=== PATIENT | female | born 1970 | race Caucasian/White ===

== ENCOUNTER 2018-09-25 10:34 | Outpatient (CLI) | payer OTHER ==
--- NOTE | 2018-09-25 11:46 | RAD ---
LEFT KNEE TWO VIEWS: INDICATIONS: Left knee pain, unspecified chronicity. FINDINGS: No significant arthropathy, fracture, or joint capsular distention of the left knee. No dislocation is seen. IMPRESSION: No significant osseous abnormality of left knee. POS: [facility]
== END 2018-09-25 10:35 | disposition home or self-care (01) ==
LOC: RAD 10:34
PROVIDERS: ATTEND Nurse Practitioner Family
DX: M25.562 Pain in left knee (principal)
CPT/HCPCS: 80307; 80326; 80331; 80334; 80337; 80341; 80344; 80346; 80348; 80353; 80354; 80355; 80357; 80358; 80359; 80360; 80361; 80364; 80365; 80366; 80367; 80368; 80370; 80371; 80372; 80377

== ENCOUNTER 2018-10-09 09:40 | Outpatient (CLI) | payer OTHER ==
--- NOTE | 2018-10-09 12:33 | MRI ---
MRI LUMBAR SPINE NONCONTRAST: INDICATIONS: Lumbar radiculopathy. Low back pain. COMPARISON: No prior comparisons. FINDINGS: The conus medullaris is normal in morphology and terminates at the L1-L2 level. Vertebral body heigh ts are maintained. No acute compression deformity. Mild endplate marrow edema of the L4-L5 level is compatible with a modic type I degenerative process. No evidence of subluxation. Multilevel bilate ral moderate facet osteoarthritis is present. Incidental note of a partially imaged exophytic cyst, posteriorly, from the right kidney, incompletel y evaluated. There is also a T2 hyperintensity incidentally imaged and partially visualized within t he right pelvis. There is motion artifact, which limits evaluation. L5-S1: Mild disk osteophyte is present without significant compromise of the central canal or neural foramina. L4-L5: There is a broad-based disk osteophyte with mild central canal stenosis. There is mild bilat eral neural foraminal stenosis. Added signal of the left subarticular zone crowds the traversing left L5 nerve root. L3-L4: Mild central canal stenosis as a result of disk osteophyte complex. No high-grade foraminal stenosis. L2-L3: There is mild central canal stenosis. No high-grade neural foraminal compromise. There is a mild disk osteophyte complex. L1-L2: No significant compromise of the central canal or neural foramina. There is evidence of prior posterior decompression at the L4 and L5 levels. IMPRESSION: 1. Multilevel degenerative changes of the lumbar spine, as outlined above. There is marked limitati on due to persistent patient motion throughout the examination. 2. Evidence of prior posterior decompression at the lower lumbar spine. Correlate with surgical his tory. Added signal of the left L4-5 subarticular zone crowds the traversing left L5 nerve root. This could reflect epidural fibrosis, in light of the operative change, although is incompletely assessed. Recommend follow-up with post contrast Lumbar Spine MRI. 3. Incompletely assessed cysts, one of which involves the posterior aspect of the right kidney and t he other within the right hemipelvis. POS: [facility]
== END 2018-10-09 09:41 | disposition home or self-care (01) ==
LOC: BICMRI 09:40
PROVIDERS: ATTEND Nurse Practitioner Family
DX: M47.26 Other spondylosis with radiculopathy, lumbar region (principal); N28.1 Cyst of kidney, acquired; N94.89 Other specified conditions associated with female genital organs and menstrual cycle; M48.8X6 Other specified spondylopathies, lumbar region
CPT/HCPCS: 72148

== ENCOUNTER 2018-11-13 09:23 | Outpatient (CLI) | payer OTHER ==
[2018-11-13] MEDS ORDERED: ISOVUE-370 76%-LOCM 1 ML ONE (09:59)
--- NOTE | 2018-11-13 11:16 | CT ---
CT OF THE ABDOMEN AND PELVIS WITHOUT AND WITH CONTRAST: Date: 11/13/18 HISTORY: Hematuria. Renal cysts seen on prior MRI. COMPARISON: MRI lumbar spine dated 10/09/18. TECHNIQUE: Multiple contiguous axial images were obtained in a CT of the abdomen and pelvis without and IV contr ast. Postcontrast images were obtained in nephrographic and excretory phases. Sagittal and coronal re formats were performed. FINDINGS: There is a tiny, subcentimeter, hypodensity in the right kidney which likely represents a small cyst. The liver, gallbladder, left kidney, adrenal glands, spleen, and pancreas are unremarkable. No free air, free fluid, or stranding changes are seen in the abdomen or pelvis. The large and small bowel are unremarkable. The patient is status post hysterectomy. No abdominal or pelvic lymphadenopathy seen. Mild degenerative changes are seen in the spine. There is a calcified granuloma in the lingula. Visua lized inferior thorax is otherwise unremarkable. The abdominal wall soft tissues are unremarkable. IMPRESSION: Small right renal cyst; otherwise, unremarkable exam. POS: [facility]
== END 2018-11-13 09:24 | disposition home or self-care (01) ==
LOC: BICCT 09:23
PROVIDERS: ATTEND Urology
DX: R31.9 Hematuria, unspecified (principal); N28.1 Cyst of kidney, acquired
CPT/HCPCS: 74178; Q9966

== ENCOUNTER 2019-09-16 11:33 | Day surgery (SDC) | payer OTHER ==
[~2019-09-16 11:33] MED LIST: PHENYLEPHRINE-NS 100 MCG/ML 10 ML SYRINGE ONE; PROPOFOL 200 MG/20 ML VIAL ONE
[2019-09-16] MEDS ORDERED: Bupivacaine PF 0.5% 30 ML VIAL ONE (12:58)
[2019-09-16] MEDS ORDERED: EPINEPHrine 1 MG/ML AMP ONE (12:58)
[2019-09-16] MEDS ORDERED: Midazolam HCl 2 mg/2 ml Vial ONE (13:14)
[2019-09-16] MEDS ORDERED: diphenhydrAMINE 50 MG/ML VIAL ONE (13:50)
[2019-09-16] MEDS ORDERED: Propofol 500 MG/50 ML VIAL ONE (14:19)
[2019-09-16] MEDS ORDERED: Morphine 10 MG/ML VIAL ONE (14:26)
--- NOTE | 2019-09-16 16:12 | RAD ---
EXAM: XR Thoracic Spine 2 View PROVIDED CLINICAL HISTORY: Dorsal column stimulator insertion. COMPARISON: None FINDINGS/IMPRESSION: Single AP fluoroscopic image of the thoracic spine demonstrates dorsal column stimulator leads overly ing the thoracic spine. An image of the entire thoracic spine was not obtained to evaluate for accurate count of level of termination of the leads. Correlation with intraoperative findings is kathrin mmended.
[2019-09-16] MEDS ORDERED: Promethazine HCl 25 MG/ML VIAL ONE (16:42)
[2019-09-16] MEDS ORDERED: Morphine 4 MG/ML VIAL ONE (16:42)
[2019-09-16] MEDS ORDERED: HYDROcodone/Acetaminophen 5/325 mg Tablet ONE (17:26)
--- NOTE | 2019-09-16 20:19 | OP ---
DATE OF PROCEDURE: 09/16/2019 APPRENTICE MACHINIST OUTSIDE: None. PREOPERATIVE DIAGNOSES: 1. Postlaminectomy syndrome. 2. Chronic pain syndrome. 3. Lumbar radiculopathy. POSTOPERATIVE DIAGNOSES: 1. Postlaminectomy syndrome. 2. Chronic pain syndrome. 3. Lumbar radiculopathy. PROCEDURE PERFORMED: 1. Spinal cord stimulator generator implant x1. 2. Spinal cord stimulator lead implant x2. ESTIMATED BLOOD LOSS: 5 mL. DESCRIPTION OF PROCEDURE: The patient was taken to the procedure room and placed prone on the procedure room table. A time-out was performed. The back was prepped with DuraPrep and sterile drapes were applied. Using the fluoroscopy, we located the interspace of T11-12. We anesthetized the skin and made a vertical incision and blunt dissected this down to fascia. We then inserted the supplied Touhy needle in a paramedian fashion to engage in the T11-T12 ligament. We used loss resistance to air to achieve access to the epidural space. This aspiration was negative for heme or CSF. An 8-contact lead was then threaded up the midline dorsal epidural space to the mid body of T7. A contralateral lead was placed using the exact same technique on the contralateral side. Stimulation was performed with the patient awake and the patient noted paresthesia in all pain areas. The needles were removed taking care not to move the leads. Stylettes were removed. Anchors were slipped over the leads and clicked down to fascia. We then sutured these anchors into fascia using 2-0 silk suture x2. The skin above the left buttock was anesthetized using Marcaine 0.5% with epinephrine. A scalpel was used to make an incision and this was blunt dissected down to Viral's fascia. We then dissected inferiorly and superiorly to create a pocket, used a tunneling device to make a tunnel between the two pockets. We slipped the leads through this tunneling device and brought it to the battery pocket area. These were connected to the battery and torqued down, so they were secured to the battery. Impedances were checked, which were all good. The battery was flipped inside the pocket easily. The fascial layers were closed using simple interrupted stitches with Vicryl 2-0. 3-0 Rapide Vicryl was used for subcuticular stitch and Dermabond was used as an occlusive dressing. The patient was taken to the Day Stay under stable condition with no apparent complications noted at this time. Job ID: [id number]
== END 2019-09-16 18:14 | disposition home or self-care (01) ==
LOC: SDC 11:33
PROVIDERS: ATTEND Specialist
PROC: 00HU0MZ Insertion of Neurostimulator Lead into Spinal Canal, Open Approach (ICD-10-PCS; principal; 2019-09-16)
PROC: 0JH70BZ Insertion of Single Array Stimulator Generator into Back Subcutaneous Tissue and Fascia, Open Approach (ICD-10-PCS; principal; 2019-09-16)
DX: M96.1 Postlaminectomy syndrome, not elsewhere classified (principal); G89.4 Chronic pain syndrome; M54.16 Radiculopathy, lumbar region; Z79.899 Other long term (current) drug therapy; Z88.1 Allergy status to other antibiotic agents; Z88.6 Allergy status to analgesic agent; Z88.8 Allergy status to other drugs, medicaments and biological substances
CPT/HCPCS: 72070; 76000; J0171; J1200; J2250; J2270; J2550; J2704; J3370; S0020

== ENCOUNTER 2021-02-02 12:29 | Outpatient (CLI) | payer OTHER | END 2021-02-02 12:30 | disposition home or self-care (01) | LOC: MRI 12:29 | PROVIDERS: ATTEND Nurse Practitioner Family | DX: M50.122 Cervical disc disorder at C5-C6 level with radiculopathy (principal) | CPT/HCPCS: 72141 ==

== ENCOUNTER 2022-05-25 12:55 | Outpatient (CLI) | payer OTHER | END 2022-05-25 12:56 | disposition home or self-care (01) | LOC: BICRAD 12:55 | PROVIDERS: ATTEND Nurse Practitioner Family | DX: M25.552 Pain in left hip (principal) | CPT/HCPCS: 72170 ==